=== PATIENT | male | born 1985 | race Caucasian/White ===

== ENCOUNTER 2024-10-05 10:24 | Emergency (ER) | payer OTHER ==
[~2024-10-05] VITALS: Ht 188 cm; Wt 149.7 kg
[2024-10-05] MEDS ORDERED: CEPH500 PO (11:57)
== END 2024-10-05 12:04 | disposition home or self-care (01) ==
LOC: ER 10:24
DX: L03.115 Cellulitis of right lower limb (principal); M79.671 Pain in right foot; F17.200 Nicotine dependence, unspecified, uncomplicated
CPT/HCPCS: 73610; 93971; 99284-25